=== PATIENT | female | born 1935 | race Caucasian/White ===

== ENCOUNTER 2017-06-05 09:36 | Emergency (ER) | payer OTHER, MEDICARE ==
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
== END 2017-06-05 13:05 | disposition home or self-care (01) ==
LOC: FB.ED 09:36
DX: S06.0X9A Concussion with loss of consciousness of unspecified duration, initial encounter (principal); S16.1XXA Strain of muscle, fascia and tendon at neck level, initial encounter; S46.912A Strain of unspecified muscle, fascia and tendon at shoulder and upper arm level, left arm, initial encounter; E66.9 Obesity, unspecified; I10 Essential (primary) hypertension; V89.2XXA Person injured in unspecified motor-vehicle accident, traffic, initial encounter
CPT/HCPCS: 36415; 70450; 71046; 72125; 73030-LT; 80053; 80305; 81001; 85025; 93005; 99284

== ENCOUNTER 2019-05-12 09:52 | Observation (INO) | payer MEDICARE ==
--- NOTE | 2019-05-12 11:02 | EDM.PDOC ---
ED HPI GENERAL MEDICAL PROBLEM - General Chief Complaint: General Stated Complaint: UNABLE TO POOP FOR A WEEK Time Seen by Provider: 05/12/19 10:59 Source of Information: Reports: Patient History Limitations: Reports: No Limitations - History of Present Illness INITIAL COMMENTS - FREE TEXT/NARRATIVE: Patient has been constipated, unable to defecate x 1 week. Has had rectal pressure and pain x 2 days. No improvement with Dulcolax and "Smooth move tea." Denies abdominal pain or N/V. Similar symptoms 2 weeks ago, that responded to laxatives. Denies prior h/o bowel obstruction or GI mass. Duration: Week(s): (1) - Related Data Allergies Allergy/AdvReac Type Severity Reaction Status Date / Time No Known Allergies Allergy Verified 06/05/17 10:20 Home Meds: Home Meds Bimatoprost [LUMIGAN 0.01% Ophth Soln] 1 drop EYEBOTH BEDTIME 06/05/17 [History] Bisoprolol/Hydrochlorothiazide [Bisoprolol/HCTZ 5-6.25 MG] 1 tab PO DAILY [History] Past Medical History Cardiovascular History: Reports: Hypertension Oncologic (Cancer) History: Reports: Breast, Uterine Social & Family History - Family History Family Medical History: Noncontributory - Caffeine Use Caffeine Use: Reports: Coffee ED ROS GENERAL - Review of Systems Review Of Systems: Comprehensive ROS is negative, except as noted in HPI. ED EXAM, GI/ABD - Physical Exam Exam: See Below Exam Limited By: No Limitations General Appearance: Alert, WD/WN, No Apparent Distress Throat/Mouth: No Airway Compromise Head: Atraumatic, Normocephalic Respiratory/Chest: No Respiratory Distress GI/Abdominal Exam: Normal Bowel Sounds, Soft, Non-Tender, No Distention Extremities: Normal Range of Motion Neurological: Alert, Normal Cognition Psychiatric: Normal Affect, Normal Mood Skin Exam: Warm, Dry, Intact Course - Vital Signs Text/Narrative:: Triage vitals: T 97.6, BP 167/72, HR 84, Sa02 99% RA. - Orders/Labs/Meds Orders: Active Orders 24 hr Category Date Time Status Admission Status [Patient Status] [ADT] Routine ADT 05/12/19 14:38 Ordered Abdomen Pelvis wo Cont [CT] Stat Exams 05/12/19 10:58 Taken Labs: Laboratory Tests 05/12/19 05/12/19 05/12/19 Range/Units 11:09 11:09 11:09 WBC 9.7 (4.5-12.0) X10-3/uL RBC 4.05 (3.23-5.20) x10(6)uL Hgb 12.6 (11.5-15.5) g/dL Hct 37.3 (30.0-51.3) % MCV 92.1 (80-96) fL MCH 31.0 (27.7-33.6) pg MCHC 33.6 (32.2-35.4) g/dL RDW 13.0 (11.5-15.5) % Plt Count 306 (125-369) X10(3)uL MPV 7.4 (7.4-10.4) fL Neut % (Auto) 75.5 (46-82) % Lymph % (Auto) 13.7 (13-37) % [place] % (Auto) 9.7 (4-12) % Eos % (Auto) 1 (1.0-5.0) % Baso % (Auto) 0 (0-2) % Neut # (Auto) 7.4 (1.6-8.3) # Lymph # (Auto) 1.3 (0.6-5.0) # [place] # (Auto) 0.9 (0.0-1.3) # Eos # (Auto) 0.1 (0.0-0.8) # Baso # (Auto) 0.0 (0.0-0.2) # Sodium 142 (135-145) mmol/L Potassium 3.7 (3.5-5.3) mmol/L Chloride 102 (100-110) mmol/L Carbon Dioxide 31 (21-32) mmol/L BUN 10 (7-18) mg/dL Creatinine 1.0 (0.55-1.02) mg/dL Est Cr Clr Drug Dosing TNP Estimated GFR (MDRD) 53 L (>60) BUN/Creatinine Ratio 10.0 (9-20) Glucose 116 (80-116) mg/dL Calcium 9.2 (8.6-10.2) mg/dL Total Bilirubin 0.7 (0.1-1.3) mg/dL AST 28 H D (5-25) IU/L ALT 24 D (12-36) U/L Alkaline Phosphatase 79 (56-112) IU/L Total Protein 7.4 (6.0-8.0) g/dL Albumin 3.8 (3.2-4.6) g/dL Globulin 3.6 g/dL Albumin/Globulin Ratio 1.1 TSH, Ultra Sensitive 1.63 (0.36-3.74) IU/mL Meds: Medications Discontinued Medications Generic Name Dose Route Start Last Admin Trade Name Cinthya PRN Reason Stop Dose Admin Sodium Biphosphate/Sodium Phosphate 133 ml 05/12/19 12:25 05/12/19 13:02 Fleet Enema RECTAL 05/12/19 12:26 133 ml ONETIME ONE Administration - Radiology Interpretation Free Text/Narrative:: CT Abd/Pelvis w/o contrast: Diffuse ill-defined heterogenicity of the presacral soft tissues, perrectal fat stranding and fecal loading of the rectosigmoid colon, concerning for colitis, possibly stercoral colitis. No extra luminal gas or drainable fluid collection. - Re-Assessments/Exams Free Text/Narrative Re-Assessment/Exam: 05/12/19 14:46 Minimal BM after manual disimpaction, Fleet's enema, Mineral oil enema, and soap suds enema. Patient feels slight improvement, but still complains of rectal pressure. Will refer to observation to [facility] for definitive treatment. Dr. Sy will admit. Departure - Departure Time of Disposition: 14:48 Disposition: Refer to Observation Condition: Fair Clinical Impression: Colitis Constipation Qualifiers: Constipation type: unspecified constipation type Qualified Code(s): K59.00 - Constipation, unspecified - Discharge Information Referrals: Eran Velasco MD [Primary Care Provider] - Forms: ED Department Discharge Sepsis Event Note - Focused Exam Date Exam was Performed: 05/12/19 Time Exam was Performed: 14:46 - My Orders Last 24 Hours: My Active Orders 05/12/19 10:58 Abdomen Pelvis wo Cont [CT] Stat 05/12/19 14:38 Admission Status [Patient Status] [ADT] Routine - Assessment/Plan Last 24 Hours: My Active Orders 05/12/19 10:58 Abdomen Pelvis wo Cont [CT] Stat 05/12/19 14:38 Admission Status [Patient Status] [ADT] Routine
[2019-05-12] MEDS ORDERED: Sodium Phosphate,Monobasic/Sodium Phosphate,Dibasic Enema 133 ML Bottle RECTAL ONE (12:25)
[2019-05-12] MEDS: Sodium Phosphate,Monobasic/Sodium Phosphate,Dibasic Enema 133 ML Bottle RECTAL ONE ×2 (13:15→20:40)
[2019-05-12] MEDS ORDERED: Polyethylene Glycol/Electrolytes 4,000 ML Bottle PO ONE (15:02)
[2019-05-12] MEDS ORDERED: Ondansetron 4 MG Tab.DIS PO PRN (15:03)
[2019-05-12] MEDS ORDERED: ALPRAZolam 0.25 MG Tab PO PRN (15:04)
--- NOTE | 2019-05-12 18:01 | PCM.HP.2 ---
H&P History of Present Illness - General Date of Service: 05/12/19 Admit Problem/Dx: Admission Diagnosis/Problem Admission Diagnosis/Problem Constipation Source of Information: Patient, Old Records History Limitations: Reports: No Limitations - History of Present Illness Initial Comments - Free Text/Narative: This is an 83-year-old female patient that lives by herself. Has a week history of not been able to have a BM. She says she's has a lot of rectal pressure and pain when she tries to move her bowels per she's tried different laxatives and things at home and the things work. 2 weeks ago the same thing happen and laxatives works at that time. She denies any abdominal pain or distention. She was in the ER and they tried different suppositories and also try to manually disimpact her. CT scan showed lots of stool possible colitis. She's had a colonoscopy before no history of bowel obstruction per she's had a history of uterine cancer and breast cancer. She's had a cystectomy and hysterectomy. - Related Data Allergies/Adverse Reactions: Allergies Allergy/AdvReac Type Severity Reaction Status Date / Time No Known Allergies Allergy Verified 05/12/19 14:53 Home Medications: Home Meds Bimatoprost [LUMIGAN 0.01% Ophth Soln] 1 drop EYEBOTH BEDTIME 06/05/17 [History] Bisoprolol/Hydrochlorothiazide [Bisoprolol/HCTZ 5-6.25 MG] 1 tab PO DAILY [History] ALPRAZolam [Alprazolam] 0.25 mg PO BEDTIME PRN 05/12/19 [History] Past Medical History HEENT History: Reports: Cataract Other HEENT History: Left cataract Cardiovascular History: Reports: Hypertension VASC TECH History: Reports: , Other (See Below) Other OB/BYN History: Hysterectomy Musculoskeletal History: Reports: Arthritis, Osteoporosis Psychiatric History: Reports: Anxiety Oncologic (Cancer) History: Reports: Breast, Uterine Dermatologic History: Reports: Benign Melanoma Other Dermatologic History: Right leg skin Cancer Social & Family History - Family History Family Medical History: Noncontributory - Tobacco Use Smoking Status *Q: Former Smoker Years of Tobacco use: 10 Used Tobacco, but Quit: Yes Month/Year Tobacco Last Used: 1979 Second Hand Smoke Exposure: No - Caffeine Use Caffeine Use: Reports: Coffee Other Caffeine Use: 6 cups/day - Alcohol Use Days Per Week of Alcohol Use: 2 Number of Drinks Per Day: 2 Total Drinks Per Week: 4 - Recreational Drug Use Recreational Drug Use: No H&P Review of Systems - Review of Systems: Review Of Systems: See Below General: Reports: No Symptoms HEENT: Reports: No Symptoms Pulmonary: Reports: No Symptoms Cardiovascular: Reports: No Symptoms Gastrointestinal: Reports: Other (See history of present illness) Genitourinary: Reports: No Symptoms Musculoskeletal: Reports: No Symptoms Skin: Reports: No Symptoms Psychiatric: Reports: No Symptoms Neurological: Reports: No Symptoms Hematologic/Lymphatic: Reports: No Symptoms Exam - Exam Exam: See Below - Vital Signs Weight: 200 lb - Exam General: Alert, Oriented, Cooperative HEENT: Hearing Intact, Mucosa Moist & [place], TMs Clear Neck: Supple, Trachea Midline Lungs: Clear to Auscultation, Normal Respiratory Effort Cardiovascular: Regular Rate, Regular Rhythm GI/Abdominal Exam: Normal Bowel Sounds, Soft, Non-Tender. No: No Distention, No Abnormal Bruit, No Mass Extremities: Normal Inspection, Non-Tender, No Pedal Edema Skin: Warm, Dry, Intact Neuro Extensive - Mental Status: Alert, Oriented x3, Normal Mood/Affect, Normal Cognition Psychiatric: Alert, Normal Affect, Normal Mood - Patient Data Lab Results Last 24 hrs: Laboratory Results - last 24 hr 05/12/19 05/12/19 05/12/19 Range/Units 11:09 11:09 11:09 WBC 9.7 (4.5-12.0) X10-3/uL RBC 4.05 (3.23-5.20) x10(6)uL Hgb 12.6 (11.5-15.5) g/dL Hct 37.3 (30.0-51.3) % MCV 92.1 (80-96) fL MCH 31.0 (27.7-33.6) pg MCHC 33.6 (32.2-35.4) g/dL RDW 13.0 (11.5-15.5) % Plt Count 306 (125-369) X10(3)uL MPV 7.4 (7.4-10.4) fL Neut % (Auto) 75.5 (46-82) % Lymph % (Auto) 13.7 (13-37) % [place] % (Auto) 9.7 (4-12) % Eos % (Auto) 1 (1.0-5.0) % Baso % (Auto) 0 (0-2) % Neut # (Auto) 7.4 (1.6-8.3) # Lymph # (Auto) 1.3 (0.6-5.0) # [place] # (Auto) 0.9 (0.0-1.3) # Eos # (Auto) 0.1 (0.0-0.8) # Baso # (Auto) 0.0 (0.0-0.2) # Sodium 142 (135-145) mmol/L Potassium 3.7 (3.5-5.3) mmol/L Chloride 102 (100-110) mmol/L Carbon Dioxide 31 (21-32) mmol/L BUN 10 (7-18) mg/dL Creatinine 1.0 (0.55-1.02) mg/dL Est Cr Clr Drug Dosing TNP Estimated GFR (MDRD) 53 L (>60) BUN/Creatinine Ratio 10.0 (9-20) Glucose 116 (80-116) mg/dL Calcium 9.2 (8.6-10.2) mg/dL Total Bilirubin 0.7 (0.1-1.3) mg/dL AST 28 H D (5-25) IU/L ALT 24 D (12-36) U/L Alkaline Phosphatase 79 (56-112) IU/L Total Protein 7.4 (6.0-8.0) g/dL Albumin 3.8 (3.2-4.6) g/dL Globulin 3.6 g/dL Albumin/Globulin Ratio 1.1 TSH, Ultra Sensitive 1.63 (0.36-3.74) IU/mL Result Diagrams: 05/12/19 11:09 05/12/19 11:09 - Problem List (1) Colitis SNOMED Code(s): 55312352 ICD Code: K52.9 - NONINFECTIVE GASTROENTERITIS AND COLITIS, UNSPECIFIED Status: Acute Current Visit: Yes (2) Constipation SNOMED Code(s): 48860316 ICD Code: K59.00 - CONSTIPATION, UNSPECIFIED Status: Acute Current Visit : Yes Qualifiers: Constipation type: unspecified constipation type Qualified Code(s): K59.00 - Constipation, unspecified Problem List Initiated/Reviewed/Updated: Yes Orders Last 24hrs: Active Orders 24 hr Category Date Time Status Admission Status [Patient Status] [ADT] Routine ADT 05/12/19 14:38 Active Ambulate [RC] PER UNIT ROUTINE Care 05/12/19 15:00 Active Notify Provider Vital Signs [RC] ASDIRECTED Care 05/12/19 15:02 Active Pulse Oximetry [RC] PRN Care 05/12/19 15:00 Active Vital Signs [RC] QSHIFT Care 05/12/19 15:00 Active Regular Diet [DIET] Diet 05/12/19 Dinner Active Abdomen Pelvis wo Cont [CT] Stat Exams 05/12/19 10:58 Taken ALPRAZolam [Xanax] Med 05/12/19 15:04 Active 0.25 mg PO BEDTIME PRN Bimatoprost [LUMIGAN 0.01% Ophth Soln] Med 05/12/19 21:00 Pending 1 drop EYEBOTH BEDTIME Bisoprolol/Hydrochlorothiazide [Ziac 5-6.25 MG] Med 05/13/19 09:00 Pending 1 tab PO DAILY Ondansetron [Zofran ODT] Med 05/12/19 15:03 Active 4 mg PO Q8H PRN Resuscitation Status Routine Resus Stat 05/12/19 15:00 Ordered Medication Orders Alprazolam (Xanax) 0.25 mg PO BEDTIME PRN PRN Reason: Anxiety Bisoprolol Fumarate/HCTZ (Ziac 5-6.25 Mg) 1 tab PO DAILY DILLON Non-Formulary Medication (Bimatoprost [Lumigan 0.01% Ophth Soln]) 1 drop EYEBOTH BEDTIME DILLON Ondansetron HCl (Zofran Odt) 4 mg PO Q8H PRN PRN Reason: Nausea/Vomiting Assessment/Plan Comment:: 1. Admit for observation. She can take her own pills. The reason is because she has some colitis and using a bowel prep she has a dense of perforation so watch her closely until she has a BM. 2. Lovenox for VTE prophylaxis 3. Patient's full code. 4. Review the labs and no further labs needed. 5. GoLYTELY prep and she can eat. 6. Up ad cele. - Mortality Measure Prognosis:: Good
[2019-05-12] MEDS ORDERED: Enoxaparin 30 MG/0.3 ML Syringe SUBCUT SCH (18:30)
[2019-05-12] MEDS ORDERED: BIMATOPROST EYEBOTH SCH (21:00)
--- NOTE | 2019-05-13 07:59 | PCM.PN ---
- General Info Date of Service: 05/13/19 Admission Dx/Problem (Free Text): Patient states she had good results from the GoLYTELY through the night. Her rectal pressure is much better. She has no bloating, abdominal pain or fevers. - Patient Data Vitals - Most Recent: Last Vital Signs Temp 97.8 F 05/13/19 07:49 Pulse 94 05/13/19 07:49 Resp 18 05/13/19 07:49 BP 140/60 05/13/19 07:49 Pulse Ox 99 05/13/19 07:49 Weight - Most Recent: 200 lb Lab Results Last 24 Hours: Laboratory Results - last 24 hr 05/12/19 05/12/19 05/12/19 Range/Units 11:09 11:09 11:09 WBC 9.7 (4.5-12.0) X10-3/uL RBC 4.05 (3.23-5.20) x10(6)uL Hgb 12.6 (11.5-15.5) g/dL Hct 37.3 (30.0-51.3) % MCV 92.1 (80-96) fL MCH 31.0 (27.7-33.6) pg MCHC 33.6 (32.2-35.4) g/dL RDW 13.0 (11.5-15.5) % Plt Count 306 (125-369) X10(3)uL MPV 7.4 (7.4-10.4) fL Neut % (Auto) 75.5 (46-82) % Lymph % (Auto) 13.7 (13-37) % [place] % (Auto) 9.7 (4-12) % Eos % (Auto) 1 (1.0-5.0) % Baso % (Auto) 0 (0-2) % Neut # (Auto) 7.4 (1.6-8.3) # Lymph # (Auto) 1.3 (0.6-5.0) # [place] # (Auto) 0.9 (0.0-1.3) # Eos # (Auto) 0.1 (0.0-0.8) # Baso # (Auto) 0.0 (0.0-0.2) # Sodium 142 (135-145) mmol/L Potassium 3.7 (3.5-5.3) mmol/L Chloride 102 (100-110) mmol/L Carbon Dioxide 31 (21-32) mmol/L BUN 10 (7-18) mg/dL Creatinine 1.0 (0.55-1.02) mg/dL Est Cr Clr Drug Dosing TNP Estimated GFR (MDRD) 53 L (>60) BUN/Creatinine Ratio 10.0 (9-20) Glucose 116 (80-116) mg/dL Calcium 9.2 (8.6-10.2) mg/dL Total Bilirubin 0.7 (0.1-1.3) mg/dL AST 28 H D (5-25) IU/L ALT 24 D (12-36) U/L Alkaline Phosphatase 79 (56-112) IU/L Total Protein 7.4 (6.0-8.0) g/dL Albumin 3.8 (3.2-4.6) g/dL Globulin 3.6 g/dL Albumin/Globulin Ratio 1.1 TSH, Ultra Sensitive 1.63 (0.36-3.74) IU/mL Med Orders - Current: Current Medications Alprazolam (Xanax) 0.25 mg PO BEDTIME PRN PRN Reason: Anxiety Bisoprolol Fumarate/HCTZ (Ziac 5-6.25 Mg) 1 tab PO DAILY [facility] Enoxaparin Sodium (Lovenox) 30 mg SUBCUT Q24H [facility] Last Admin: 05/12/19 19:25 Dose: 30 mg Bimatoprost [Lumigan 0.01% Ophth Soln] Pt Own 1 drop EYEBOTH BEDTIME [facility] Last Admin: 05/12/19 21:24 Dose: 1 drop Ondansetron HCl (Zofran Odt) 4 mg PO Q8H PRN PRN Reason: Nausea/Vomiting Discontinued Medications Polyethylene Glycol/Electrolytes (Golytely) 4,000 ml PO ONETIME ONE Stop: 05/12/19 15:03 Last Admin: 05/12/19 16:16 Dose: 1 gal Sodium Biphosphate/Sodium Phosphate (Fleet Enema) 133 ml RECTAL ONETIME ONE Stop: 05/12/19 12:26 Last Admin: 05/12/19 13:02 Dose: 133 ml Sodium Biphosphate/Sodium Phosphate (Fleet Enema) 133 ml RECTAL ONETIME ONE Stop: 05/12/19 20:18 Last Admin: 05/12/19 20:40 Dose: Not Given - Exam General: Alert, Oriented, Cooperative GI/Abdominal Exam: Normal Bowel Sounds, Soft, Non-Tender, No Distention Sepsis Event Note - Evaluation Sepsis Screening Result: No Definite Risk - Focused Exam Vital Signs: Vital Signs Temp Pulse Resp BP Pulse Ox 05/13/19 07:49 97.8 F 94 18 140/60 99 05/13/19 00:00 98.2 F 80 17 143/78 H 99 Date Exam was Performed: 05/13/19 Time Exam was Performed: 07:58 - Problem List & Annotations (1) Colitis SNOMED Code(s): 29516901 Code(s): K52.9 - NONINFECTIVE GASTROENTERITIS AND COLITIS, UNSPECIFIED Status: Acute Current Visit: Yes (2) Constipation SNOMED Code(s): 55648854 Code(s): K59.00 - CONSTIPATION, UNSPECIFIED Status: Acute Current Visit: Yes Qualifiers: Constipation type: unspecified constipation type Qualified Code(s): K59.00 - Constipation, unspecified - Problem List Review Problem List Initiated/Reviewed/Updated: Yes - My Orders Last 24 Hours: My Active Orders 05/12/19 18:01 Up ad Kelsi [RC] ASDIRECTED 05/12/19 18:30 Enoxaparin [Lovenox] 30 mg SUBCUT Q24H 05/13/19 07:57 Ready for Discharge [RC] PER UNIT ROUTINE - Plan Plan:: 1. Discharge to home. 2. She can take [id number] MiraLAX 3. Discussed high-fiber diet and drinking 8-10 cups of water day. 4. Weightbearing exercise like walking 5. Recheck with Dr. Velasco in 1 week.
--- NOTE | 2019-05-13 08:01 | PCM.DCSUM1 ---
Discharge Summary - Hospital Course Free Text/Narrative:: Hospital course-patient was admitted after the ER cannot give her to have a BM with many different some positives. The CT scan showed some colitis so the ER doc was worried about perforation with a go lightly prep. Patient was given a GoLYTELY prep. Through the night she had many BMs. Feels much better and her rectal pain is almost gone. She denies any abdominal pain, fevers, chills. Brief History: This is an 83-year-old female patient that lives by herself. Has a week history of not been able to have a BM. She says she's has a lot of rectal pressure and pain when she tries to move her bowels per she's tried different laxatives and things at home and the things work. 2 weeks ago the same thing happen and laxatives works at that time. She denies any abdominal pain or distention. She was in the ER and they tried different suppositories and also try to manually disimpact her. CT scan showed lots of stool possible colitis. She's had a colonoscopy before no history of bowel obstruction per she' s had a history of uterine cancer and breast cancer. She's had a cystectomy and hysterectomy. Diagnosis: Stroke: No - Discharge Data Discharge Date: 05/13/19 Discharge Disposition: Home, Self-Care 01 Condition: Stable - Referral to Home Health Primary Care Physician: Eran Velasco MD - Discharge Diagnosis/Problem(s) (1) Colitis SNOMED Code(s): 30763268 ICD Code: K52.9 - NONINFECTIVE GASTROENTERITIS AND COLITIS, UNSPECIFIED Status: Acute Current Visit: Yes (2) Constipation SNOMED Code(s): 37310112 ICD Code: K59.00 - CONSTIPATION, UNSPECIFIED Status: Acute Current Visit : Yes Qualifiers: Constipation type: unspecified constipation type Qualified Code(s): K59.00 - Constipation, unspecified - Patient Instructions Diet, Other: High fiber Activity: As Tolerated Driving: May Drive Today Showering/Bathing: May Shower Other/Special Instructions: 1. Recheck with Dr. Velasco in 1 week. 2. Patient is to take MiraLAX [id number]. - Discharge Plan Home Medications: Home Meds Bimatoprost [LUMIGAN 0.01% Ophth Soln] 1 drop EYEBOTH BEDTIME 06/05/17 [History] Bisoprolol/Hydrochlorothiazide [Bisoprolol/HCTZ 5-6.25 MG] 1 tab PO DAILY [History] ALPRAZolam [Alprazolam] 0.25 mg PO BEDTIME PRN 05/12/19 [History] Forms: ED Department Discharge Referrals: Eran Velasco MD [Primary Care Provider] - - Discharge Summary/Plan Comment DC Time >30 min.: No Discharge Summary/Plan Comment: 1. Recheck with Dr. Velasco in 1 week. 2. MiraLAX [id number]. 3. High-fiber diet. 4. 8-10 glasses of water a day. 5. Recommend walking to help move her bowels. - Patient Data Vitals - Most Recent: Last Vital Signs Temp 97.8 F 05/13/19 07:49 Pulse 94 05/13/19 07:49 Resp 18 05/13/19 07:49 BP 140/60 05/13/19 07:49 Pulse Ox 99 05/13/19 07:49 Weight - Most Recent: 200 lb Lab Results - Last 24 hrs: Laboratory Results - last 24 hr 05/12/19 05/12/19 05/12/19 Range/Units 11:09 11:09 11:09 WBC 9.7 (4.5-12.0) X10-3/uL RBC 4.05 (3.23-5.20) x10(6)uL Hgb 12.6 (11.5-15.5) g/dL Hct 37.3 (30.0-51.3) % MCV 92.1 (80-96) fL MCH 31.0 (27.7-33.6) pg MCHC 33.6 (32.2-35.4) g/dL RDW 13.0 (11.5-15.5) % Plt Count 306 (125-369) X10(3)uL MPV 7.4 (7.4-10.4) fL Neut % (Auto) 75.5 (46-82) % Lymph % (Auto) 13.7 (13-37) % [place] % (Auto) 9.7 (4-12) % Eos % (Auto) 1 (1.0-5.0) % Baso % (Auto) 0 (0-2) % Neut # (Auto) 7.4 (1.6-8.3) # Lymph # (Auto) 1.3 (0.6-5.0) # [place] # (Auto) 0.9 (0.0-1.3) # Eos # (Auto) 0.1 (0.0-0.8) # Baso # (Auto) 0.0 (0.0-0.2) # Sodium 142 (135-145) mmol/L Potassium 3.7 (3.5-5.3) mmol/L Chloride 102 (100-110) mmol/L Carbon Dioxide 31 (21-32) mmol/L BUN 10 (7-18) mg/dL Creatinine 1.0 (0.55-1.02) mg/dL Est Cr Clr Drug Dosing TNP Estimated GFR (MDRD) 53 L (>60) BUN/Creatinine Ratio 10.0 (9-20) Glucose 116 (80-116) mg/dL Calcium 9.2 (8.6-10.2) mg/dL Total Bilirubin 0.7 (0.1-1.3) mg/dL AST 28 H D (5-25) IU/L ALT 24 D (12-36) U/L Alkaline Phosphatase 79 (56-112) IU/L Total Protein 7.4 (6.0-8.0) g/dL Albumin 3.8 (3.2-4.6) g/dL Globulin 3.6 g/dL Albumin/Globulin Ratio 1.1 TSH, Ultra Sensitive 1.63 (0.36-3.74) IU/mL Med Orders - Current: Current Medications Alprazolam (Xanax) 0.25 mg PO BEDTIME PRN PRN Reason: Anxiety Bisoprolol Fumarate/HCTZ (Ziac 5-6.25 Mg) 1 tab PO DAILY [facility] Enoxaparin Sodium (Lovenox) 30 mg SUBCUT Q24H [facility] Last Admin: 05/12/19 19:25 Dose: 30 mg Bimatoprost [Lumigan 0.01% Ophth Soln] Pt Own 1 drop EYEBOTH BEDTIME [facility] Last Admin: 05/12/19 21:24 Dose: 1 drop Ondansetron HCl (Zofran Odt) 4 mg PO Q8H PRN PRN Reason: Nausea/Vomiting Discontinued Medications Polyethylene Glycol/Electrolytes (Golytely) 4,000 ml PO ONETIME ONE Stop: 05/12/19 15:03 Last Admin: 05/12/19 16:16 Dose: 1 gal Sodium Biphosphate/Sodium Phosphate (Fleet Enema) 133 ml RECTAL ONETIME ONE Stop: 05/12/19 12:26 Last Admin: 05/12/19 13:02 Dose: 133 ml Sodium Biphosphate/Sodium Phosphate (Fleet Enema) 133 ml RECTAL ONETIME ONE Stop: 05/12/19 20:18 Last Admin: 05/12/19 20:40 Dose: Not Given
== END 2019-05-13 08:25 | disposition home or self-care (01) ==
LOC: FB.ED 09:52 → FB.MS 14:38
PROVIDERS: ADMIT Emergency Medicine; ATTEND Family Medicine
DX: K59.00 Constipation, unspecified (principal); K52.9 Noninfective gastroenteritis and colitis, unspecified; I10 Essential (primary) hypertension; F41.9 Anxiety disorder, unspecified; M81.0 Age-related osteoporosis without current pathological fracture; M19.90 Unspecified osteoarthritis, unspecified site; Z87.891 Personal history of nicotine dependence; Z79.899 Other long term (current) drug therapy
CPT/HCPCS: 36415; 74176; 80053; 84443; 85025; 96372; 99284; 99284-25; A9270-GY; G0378; J1650